=== PATIENT | male | born 1955 | race Caucasian/White ===

== ENCOUNTER 2018-07-20 05:27 | Day surgery (SDC) | payer OTHER ==
[~2018-07-20] VITALS: Ht 193 cm; Wt 108.0 kg
--- NOTE | ~2018-07-20 | PATH ---
[facility] [address] [address] PATHOLOGY RPT PROCEDURE Name: CARLIN CARLIN Jose Antonio Room #: DEP [facility] M.R.#: [id number] Admission: 07/20/18 Date of : 51 Discharge: 07/20/18 Report #: [id number] Path Case #: [id number] [facility] Accession Number: [id number] . 01 Material submitted: . LEFT SECOND TOE . 01 Clinician provided ICD-10: L97.529 . 01 Clinical history: . Non pressure chronic ulcer . 02 Diagnosis: Toe, left second toe, amputation: - Ulceration with acute inflammation extending into underlying subcutaneous tissue and focally into bone. - Skin margin viable and unremarkable. - Proximal bone margin grossly unremarkable. - Metallic screw embedded within bone (gross exam only). (IUV/db; 07/21/18) LBQ/07/21/2018 . 02 Electronically signed: . Lyly U Vadlamani, MD, Pathologist NPI- [id number] . 01 Gross description: . The specimen is received in formalin, labeled "Carlin Carlin, left second toe" and consists of a disarticulated toe measuring 2.7 x 2.3 x 2.0 cm. A partial bhatt and thickened nail is present measuring 1.1 x 0.4 cm. The skin is bhatt-pink with an ulcer at the distal most aspect measuring 1.5 x 1.2 cm that extends 1.3 cm from the nearest skin/soft tissue margin. The remainder of the skin displays no gross lesions. The proximal bone margin is a smooth and flat articular surface. The skin soft tissue margin nearest the ulcer is inked black. Sectioning reveals a metallic screw embedded within the bone. A gross photo is taken and small business sales representative sections are submitted as follows: . A1: Skin soft tissue margin with ulcer A2: Full-thickness longitudinal section after decalcification (SDY; 07/20/2018) SYU/SYU . 02 Pathologist provided ICD-10: L97.521 . [address] [place] [address] PATHOLOGY RPT PROCEDURE Name: CARLIN CARLIN Room #: [facility] M..#: [id number] Admission: 07/20/18 Date of : 51 Discharge: 07/20/18 Report #: [id number] Path Case #: [id number] [facility] . [id number], [id number] Specimen Comment: A courtesy copy of this report has been sent to Specimen Comment: [phone], . Specimen Comment: Report sent to Performed at: [address], [place], [place] [id number] MD Shaji Pappas MD Phone: [phone] Performed at: [address] [id number] MD Lyly Gallo MD Phone: [phone]
[~2018-07-20 05:27] MED LIST: ALTACE10 MG PO; ASPIR 8181 MG PO; GLUCOPHAGE XR500 MG PO; HYDROCHLOROTHIA25 M2 PO; LEXAPRO20 MG PO; NABUMETONE 750750 M1 PO; SIMVASTATIN40 MG PO; WELLBUTRIN XL150 MG PO; ZYLOPRIM100 MG PO
[2018-07-20 09:31] VITALS: BP 129/84
[2018-07-20 10:52] VITALS: BP 129/84
== END 2018-07-20 10:20 | disposition home or self-care (01) ==
LOC: OR 05:27 → TBA 05:27 → OR 10:20
DX: E11.621 Type 2 diabetes mellitus with foot ulcer (principal); L97.522 Non-pressure chronic ulcer of other part of left foot with fat layer exposed; M20.42 Other hammer toe(s) (acquired), left foot; I10 Essential (primary) hypertension; E78.00 Pure hypercholesterolemia, unspecified; M10.9 Gout, unspecified; F41.9 Anxiety disorder, unspecified; Z98.890 Other specified postprocedural states; Z79.899 Other long term (current) drug therapy; Z79.82 Long term (current) use of aspirin; Z87.891 Personal history of nicotine dependence; Z85.828 Personal history of other malignant neoplasm of skin
CPT/HCPCS: 50010; 50101; 50386; 56526; 57091; 57178; 62110; 62900; 70005